=== PATIENT | male | born 2000 | race Caucasian/White ===

== ENCOUNTER 2019-09-08 11:52 | Outpatient (CLI) | payer OTHER ==
--- NOTE | 2019-09-08 12:08 | RAD ---
XR Knee Lt 3 View HISTORY: Left knee pain FINDINGS: No fracture or dislocation or bony destruction is identified.
--- NOTE | 2019-09-08 12:08 | RAD ---
XR Shoulder Rt 3 View STANDARD HISTORY: Right shoulder pain FINDINGS: No fracture or dislocation or bony destruction is identified.
== END 2019-09-08 11:53 | disposition home or self-care (01) ==
LOC: BICRAD 11:52
PROVIDERS: ATTEND Nurse Practitioner Family
DX: M25.562 Pain in left knee (principal); M25.511 Pain in right shoulder